=== PATIENT | male | born 1950 | race Caucasian/White ===

== ENCOUNTER → 2018-09-08 | Outpatient (CLI) | payer MEDICARE ==
--- NOTE | 2018-09-08 12:21 | ECHOS ---
STRESS ECHOCARDIOGRAM DATE OF SERVICE: 09/08/2018 INDICATIONS: Shortness of breath. MEDICATIONS: BASELINE HEART RATE: 64 BASELINE BLOOD PRESSURE: 134/79 MAXIMUM HEART RATE: 142 MAXIMUM BLOOD PRESSURE: 220/93 85% MPHR: 100% MPHR: METS: 12.9 MAXIMUM STAGE REACHED: V TOTAL EXERCISE TIME: 12 minutes 30 seconds CLINICAL INFORMATION: Baseline EKG revealed normal sinus rhythm without significant ST-T changes. Patient walked on standard Owen protocol for 12 minute 30 seconds achieved a maximal heart rate of 142 beats per minute which is well above 85% of predicted maximal. Rare isolated PVCs were noted. Towards the peak exercise, patient had upsloping nonspecific ST-segment changes noted unassociated with any angina or arrhythmia. In the recovery period, there was evidence of upsloping inferolateral ST-segment changes and these changes may be considered ischemic, but patient did not have any subjective symptoms of angina. By EKG criteria, this is a positive stress test with ST-segment depression in lateral leads without any subjective symptoms of angina and there was no arrhythmia. This is probably a false-positive finding. Baseline echo images revealed normal wall motion and wall thickening of all segments. At peak exercise, there was good augmentation of left ventricular wall motion and wall thickening of all segments suggesting that there is no evidence of stress-induced ischemia on this study. FINAL IMPRESSION: 1. Excellent exercise capacity with probably a false positive stress test by EKG criteria without subjective symptoms of angina. 2. Normal stress echocardiogram. REYES / JOSE LUISN: [id number] /
--- NOTE | 2018-09-09 06:35 | ECHOF ---
Referral Reason:CHEST PAIN MEASUREMENTS -------- HEIGHT: 172.7 cm WEIGHT: 68.9 kg BP: RVIDd: 3.3 cm (< 3.3) IVSd: 1.0 cm (0.6 - 1.1) LVIDd: 4.2 cm (3.9 - 5.3) LVPWd: 1.0 cm (0.6 - 1.1) IVSs: 1.2 cm LVIDs: 2.7 cm LVPWs: 1.2 cm LAESV Index (A-L): 28.60 ml/m Ao Diam: 3.3 cm (2.0 - 3.7) AV Cusp: 1.5 cm (1.5 - 2.6) LA Diam: 2.6 cm (2.7 - 3.8) MV EXCURSION: 18.829 mm (> 18.000) MV EF SLOPE: 128 mm/s (70 - 150) EPSS: 0.2 cm MV E Crow: 0.88 m/s MV DecT: 211 ms MV A Crow: 1.00 m/s MV E/A Ratio: 0.88 AV maxP.64 mmHg AV meanP.23 mmHg FINDINGS -------- Sinus rhythm. Resting bradycardia (HR<60bpm). This was a technically good study. The left ventricular size is normal. Left ventricular wall thickness is normal. Overall left vent ricular systolic function is normal with, an EF between 55 - 60 %. The right ventricle is normal in size and function. Normal LA size by volume 22+/-6 ml/m2. The right atrium is normal in size. Aortic valve is trileaflet and is mildly thickened. There is mild aortic regurgitation. There is no evidence of aortic stenosis. The mitral valve leaflets are mildly thickened. Mild mitral regurgitation is present. Mild tricuspid regurgitation present. Right ventricular systolic pressure is normal at < 35 mmHg. The right ventricular systolic pressure, as measured by Doppler, is {RVSP}. There is no pulmonic regurgitation present. The aortic root size is normal. Normal inferior vena cava with normal inspiratory collapse consistent with estimated right atrial pre ssure of 5 mmHg. There is no pericardial effusion. CONCLUSIONS -------- 1. Sinus rhythm. 2. Resting bradycardia (HR<60bpm). 3. This was a technically good study. 4. The left ventricular size is normal. 5. Left ventricular wall thickness is normal. 6. Overall left ventricular systolic function is normal with, an EF between 55 - 60 %. 7. Normal LA size by volume 22+/-6 ml/m2. 8. Aortic valve is trileaflet and is mildly thickened. 9. There is mild aortic regurgitation. 10. There is no evidence of aortic stenosis. 11. The mitral valve leaflets are mildly thickened. 12. Mild mitral regurgitation is present. 13. Mild tricuspid regurgitation present. 14. Right ventricular systolic pressure is normal at < 35 mmHg. 15. There is no pulmonic regurgitation present. 16. The aortic root size is normal. 17. There is no pericardial effusion. GUIDE CRUISE: Rebel Ruelas RDCS
== END ==
LOC: RADNMMAIN 09:08
PROVIDERS: ATTEND Internal Medicine
DX: R07.9 Chest pain, unspecified (principal); R06.09 Other forms of dyspnea
CPT/HCPCS: 93306; 93351

== ENCOUNTER → 2020-12-19 | Outpatient (CLI) | payer MEDICARE ==
[2020-12-19 14:30] LABS: T4, Free (Free Thyroxine) 1.01 ng/dL (0.78-2.19)
[2020-12-20 02:14] LABS: Thyroid Peroxidase Antibodies 38.3 U/mL (0.0-60.0)
== END | disposition home or self-care (01) ==
LOC: LABWHC1 13:12
PROVIDERS: ATTEND Allergy & Immunology
DX: L50.8 Other urticaria (principal)
CPT/HCPCS: 36415; 84439; 84443; 86003; 86376; 86800

== ENCOUNTER → 2021-07-08 | Outpatient (CLI) | payer MEDICARE ==
--- NOTE | 2021-07-08 12:56 | XR ---
EXAMINATION TYPE: XR chest 2V DATE OF EXAM: 07/08/2021 COMPARISON: None INDICATION: Cough TECHNIQUE: Frontal and lateral views of the chest are obtained. FINDINGS: The heart size is normal. The pulmonary vasculature is normal. The lungs are clear. IMPRESSION: 1. No acute pulmonary process.
== END | disposition home or self-care (01) ==
LOC: RADXRMAIN 12:05
PROVIDERS: ATTEND Internal Medicine
DX: R05.9 Cough, unspecified (principal)
CPT/HCPCS: 71046

== ENCOUNTER → 2023-05-01 | Outpatient (CLI) | payer MEDICARE ==
--- NOTE | 2023-05-07 09:13 | MR ---
EXAMINATION TYPE: MR knee RT wo con DATE OF EXAM: 05/01/2023 COMPARISON: Radiograph 04/23/2023 HISTORY: 73-year-old male M2 5.561, Right inner knee pain, swelling and locking TECHNIQUE: Multiplanar, multisequence imaging of the right knee is performed without IV contrast. FINDINGS: There is a partial tear at the deep femoral attachment of the ACL, sagittal image 21 and axial image 23. PCL is intact. Edema on either side of the intact MCL. There is heterogeneous thickening at the femoral attachment of the LCL proper and intermediate signal of the popliteus tendon. Corresponding mild edema of the popliteus muscle belly. There is a large oblique tear of the medial meniscus extending from the junction of the posterior hor n and body and throughout the meniscal body. Mild to moderate irregular cartilage loss along the mid central aspect of the medial femoral condyle measuring approximately 9 x 5 mm. There is an oblique tear of the lateral meniscus extending from the junction with the posterior horn extending throughout the meniscal body and with a contiguous horizontal cleavage tear extending withi n the anterior horn. Overall lateral compartment articular cartilage volume is maintained. Patellofemoral compartment shows mild superficial cartilage fissuring along the backside of the nixon la. Extensor mechanism is intact. Anterior subcutaneous soft tissue swelling is noted. Large knee joint effusion with mild synovial thickening throughout. Deep soft tissue edema noted. Flu id extending in the expected region of the Navarro's cyst. Normal popliteal artery anatomy and muscle bulk. No suspicious bone marrow replacement. IMPRESSION: 1. Partial thickness tear at the deep femoral attachment of the ACL. 2. Grade 1 MCL sprain. 3. Grade 1 versus grade 2 sprain femoral attachment of the LCL proper. Popliteus tendinosis and mild popliteus muscle strain. 4. Large oblique tear involving the junction of the posterior horn and body of the medial meniscus an d extending throughout the meniscal body. Focal mild osteoarthritic change along the mid central aspe ct of the medial compartment. 5. Large oblique tear lateral meniscus extending from the junction of the posterior horn and body wit h contiguous horizontal cleavage tear extending through the anterior horn. 6. Large knee joint effusion with mild chronic synovitis. Extensive deep soft tissue edema suggests e xtravasation of joint fluid. Additionally, there is possible rupture of a previous Navarro's cyst. 7. Mild degenerative cartilage changes along the back side of the patella.
== END | disposition home or self-care (01) ==
LOC: RADMRIMAIN 15:31
PROVIDERS: ATTEND Orthopaedic Surgery
DX: S83.241A Other tear of medial meniscus, current injury, right knee, initial encounter (principal); S83.281A Other tear of lateral meniscus, current injury, right knee, initial encounter; S83.511A Sprain of anterior cruciate ligament of right knee, initial encounter; S83.411A Sprain of medial collateral ligament of right knee, initial encounter; M17.11 Unilateral primary osteoarthritis, right knee; S86.811A Strain of other muscle(s) and tendon(s) at lower leg level, right leg, initial encounter; M25.461 Effusion, right knee; M65.861 Other synovitis and tenosynovitis, right lower leg; X58.XXXA Exposure to other specified factors, initial encounter

== ENCOUNTER 2023-05-26 06:11 | Day surgery (SDC) | payer MEDICARE ==
[2023-05-12 11:29] VITALS: BMI 23.6
--- NOTE | 2023-05-25 08:39 | P.HPOR ---
History of Present Illness H&P Date: 05/25/23 Chief Complaint: Right knee pain The patient is a 73-year-old male who presents with persistent/progressive right knee pain after an injury in March of this year or working out. He notes medial and lateral pain that increases with activity and twisting. He notes intermittent catching and giving way. He tried medications in addition his previously had an injection without substantial relief. He notes daily pain that limits him. Review of Systems Negative except as in HPI Past Medical History Past Medical History: Asthma, Hypertension, Osteoarthritis (OA) Additional Past Medical History / Comment(s): rt knee injury while excercise,exercised induced asthma when swimming,at age 2-osteomyelitis and pneumonia History of Any Multi-Drug Resistant Organisms: None Reported Past Surgical History: Orthopedic Surgery Additional Past Surgical History / Comment(s): left knee arthroscopy 2004 Past Anesthesia/Blood Transfusion Reactions: No Reported Reaction Additional Past Anesthesia/Blood Transfusion Reaction / Comment(s): no known hx of blood transfusion Smoking Status: Former smoker - Past Family History Father Family Medical History: No Reported History Additional Family Medical History / Comment(s): lived into 90s Mother Additional Family Medical History / Comment(s): at age 96 Medications and Allergies Home Medications Medication Instructions Recorded Confirmed Type Albuterol Inhaler [Ventolin Hfa 1 - 2 puff INHALATION Q6H PRN 05/12/23 05/12/23 History Inhaler] Cetirizine HCl [Zyrtec] 10 mg PO BID PRN 05/12/23 05/12/23 History amLODIPine 10 mg PO QAM 05/12/23 05/12/23 History Allergies Allergy/AdvReac Type Severity Reaction Status Date / Time latex Allergy Rash/Hives Verified 05/12/23 11:03 mold Allergy Rash/Hives Verified 05/12/23 10:52 Physical Examination - Knee right Appearance: effusion Effusion grade: grade 3 Tenderness with palpation: medial ROM: extension: -10 degrees ROM: flexion: 100 degrees Crepitus with motion: Yes Strength: extension: 5/5 Strength: flexion: 5/5 Meniscal tests: medial meniscal tests: positive, medial joint line pain: positive Results The patient is a well-developed white male approximately 5 foot 8, 150 pounds of mesomorphic habitus. HEENT exam is nonfocal, neck is supple. He has painless passive motion of the right hip. Straight leg raise is negative. On the right knee, he is tender over the medial joint line. Collaterals are stable, Tom was negative, Saray's elicits medial pain. His distal neurovascular appears intact in the right lower extremity. - Diagnostic results Knee MRI: image reviewed (MRI of the right knee shows evidence of a posterior medial meniscal tear along with chondral defect of the medial femoral condyle. There also appears to be a lateral meniscal tear.) Assessment and Plan Assessment: Right knee internal derangement/symptomatic medial meniscal tear Plan: I talked with the patient at length regarding his condition along with treatment options. At this point he continues to have significant pain and mechanical symptoms after this acute injury despite attempted conservative measures. After a thorough discussion he opted to proceed with surgery. We'll plan on proceeding with arthroscopic evaluation with probable partial medial/possible lateral meniscectomy. We will likely perform as an outpatient procedure. Risks and benefits were discussed at length in layman's terms.
[2023-05-26] MEDS ORDERED: DEXAMETHASONE SOD PHOSPHATE 4 MG/ML 1 ML VIAL IV ONE (06:24)
[2023-05-26] MEDS ORDERED: HYDROmorphone 0.5 MG/0.5 ML SYRINGE IVP PRN (06:24)
[2023-05-26] MEDS ORDERED: ONDANSETRON 4 MG/2 ML VIAL IVP ONE (06:24)
[2023-05-26] MEDS ORDERED: LACTATED RINGERS 1,000 ML IV SCH (06:24)
[2023-05-26] MEDS ORDERED: PROPOFOL 10 MG/ML 20 ML VIAL IV ONE (07:38)
[2023-05-26] MEDS ORDERED: LIDOCAINE 2% INJ 20 MG/ML (2 ML VIAL) ONE (07:38)
[2023-05-26] MEDS ORDERED: fentaNYL (PF) 50 MCG/ML 2 ML AMP ONE (07:38)
[2023-05-26] MEDS ORDERED: PHENYLEPHRINE-0.9% NACL SYG 1,000 MCG/10 ML SYRINGE ONE (07:38)
[2023-05-26] MEDS ORDERED: MIDAZOLAM 2 MG/2 ML VIAL ONE (07:38)
[2023-05-26] MEDS ORDERED: EPINEPHrine (PF) 1 ML in SODIUM CHLORIDE 0.9% IRRIGATIO 3,000 ML IRRIGATION ONE ×4 (07:44)
--- NOTE | 2023-05-26 08:35 | P.OP ---
Date of Procedure: 05/26/23 Preoperative Diagnosis: Right knee internal derangement Postoperative Diagnosis: Right knee posterior medial meniscal tear/posterior lateral meniscal tear/marked synovitis Procedure(s) Performed: Right knee arthroscopic partial medial meniscectomy/partial lateral meniscectomy/synovectomy of the medial, lateral, and patellofemoral compartments Anesthesia: SEAN Surgeon: Lb Machuca Estimated Blood Loss (ml): 10 Pathology: none sent Condition: stable Disposition: PACU Indications for Procedure: The patient is a 73-year-old male who presents with progressive right knee pain, swelling, and stiffness after a previous injury despite attempted conservative measures. A discussion of the risks and benefits of operative intervention versus continued conservative measures was made with patient. He opted to proceed with surgery. Operative risks to include infection, neurovascular injury, development of blood clots, possible incomplete resolution symptoms, possible worsening symptoms and need for subsequent procedures was discussed. Informed consent was obtained. Operative Findings: As below Description of Procedure: The patient was brought to the operating room, and after induction of general anesthesia examined the right knee. Collaterals were stable, Tom was negative, and posterior drawer was negative. The right lower extremity was prepped and draped in a normal fashion. A superior lateral portal was made through a 3 mm skin incision superior and lateral to the patella. This was used for outflow. A lateral portal was made through a 5 mm vertical skin incision lateral to the patella tendon above the joint line. Diagnostic arthroscopy was performed. On inspection of the medial compartment, a complex tear involving the posterior medial meniscus was noted in the white-red junction. This was debrided back to stable base with straight baskets and a motorized shaver. Grade 2-3 chondral changes were noted involving the distal lateral portion the medial femoral condyle. Marked synovitis involving the anteromedial compartment was debrided with a motorized shaver. On inspection of the notch, the anterior cruciate ligament appeared to be intact. On inspection of the lateral compartment, a complex tear involving the middle to posterior one third of the lateral meniscus in the white-red junction was noted. This was debrided back to stable base with straight baskets and a motorized shaver. Again marked synovitis involving the anterior lateral compartment was debrided with a motorized shaver.. On inspection of the patellofemoral articulation, there is chondral fibrillation and chondromalacia however no loose chondral fragments. The marked synovitis was debrided with a motorized shaver.. The gutters were clear debris. The knee was then thoroughly irrigated. The portals were closed with Steri-Strips. A sterile dressing was applied in addition to a compression stocking. The patient was awoken from general anesthesia and transferred to recovery room in good condition. Blood loss was estimated at 10 mL. No complications were incurred.
[2023-05-26 08:52] VITALS: RESP 16; TEMP 97
[2023-05-26] MEDS ORDERED: HYDROcodone/APAP 5-325MG 1 EACH TAB ONE (09:56)
[2023-05-26 10:53] VITALS: BP 120/60; PULSE 75
== END 2023-05-26 11:20 | disposition home or self-care (01) ==
LOC: OR 06:11
PROVIDERS: ATTEND Orthopaedic Surgery
DX: S83.241A Other tear of medial meniscus, current injury, right knee, initial encounter (principal); S83.281A Other tear of lateral meniscus, current injury, right knee, initial encounter; M65.161 Other infective (teno)synovitis, right knee; M17.11 Unilateral primary osteoarthritis, right knee; J45.909 Unspecified asthma, uncomplicated; I10 Essential (primary) hypertension; Z87.891 Personal history of nicotine dependence; Z91.040 Latex allergy status; Z91.048 Other nonmedicinal substance allergy status
CPT/HCPCS: 29880; J2250; J1100; J2405; J0690; J0171; J3010; J2704; J1170; J2001; J2371

== ENCOUNTER → 2023-06-19 | Outpatient (CLI) | payer MEDICARE ==
--- NOTE | 2023-06-19 16:59 | CA ---
Transthoracic Echo Report Name: Mehdi Gentile Age: 73 Gender: M : 1950 Exam Date: 06/19/2023 14:23 Exam Location: [facility] Ht (in): 67 Wt (lb): 154 Ordering Physician: Ivan Siddiqi DO Attending/Referring Phys: Shipping And Receiving Specialist Bertha Myers [facility] Procedure CPT: Indications: I10 HTN R01.1 CARDIAC MURMUR Cardiac Hx: Technical Quality: Fair Contrast 1: Total Dose (mL): Contrast 2: Total Dose (mL): MEASUREMENTS (Male / Female) Normal Values 2D ECHO LV Diastolic Diameter PLAX 3.9 cm 4.2 - 5.9 / 3.9 - 5.3 cm LV Systolic Diameter PLAX 2.9 cm IVS Diastolic Thickness 1.2 cm 0.6 - 1.0 / 0.6 - 0.9 cm LVPW Diastolic Thickness 1.0 cm 0.6 - 1.0 / 0.6 - 0.9 cm LV Relative Wall Thickness 0.6 LVOT Diameter 2.0 cm Ascending Aorta Diameter 3.4 cm M-MODE Aortic Root Diameter MM 2.7 cm LA Systolic Diameter MM 3.8 cm LA Ao Ratio MM 1.4 AV Cusp Separation MM 1.7 cm DOPPLER AV Peak Velocity 251.4 cm/s AV Peak Gradient 25.3 mmHg AV Mean Velocity 173.1 cm/s AV Mean Gradient 13.3 mmHg AV Velocity Time Integral 51.1 cm LVOT Peak Velocity 141.5 cm/s LVOT Peak Gradient 8.0 mmHg LVOT Velocity Time Integral 28.2 cm LVOT Stroke Volume 88.0 cm??? LVOT Stroke Volume Index 48.6 ml/m??? LVOT Cardiac Index 3087.5 cm???/min???m??? AV Area Cont Eq vti 1.7 cm??? AV Area Cont Eq pk 1.8 cm??? Mitral E Point Velocity 69.1 cm/s Mitral A Point Velocity 88.5 cm/s Mitral E to A Ratio 0.8 MV Deceleration Time 202.3 ms LV E' Lateral Velocity 11.9 cm/s Mitral E to LV E' Lateral Ratio 5.8 LV E' Septal Velocity 7.9 cm/s Mitral E to LV E' Septal Ratio 8.8 TR Peak Velocity 188.5 cm/s TR Peak Gradient 14.2 mmHg Right Atrial Pressure 3.0 mmHg Pulmonary Artery Systolic Pressu 17.2 mmHg Right Ventricular Systolic Press 17.2 mmHg FINDINGS Left Ventricle Mildly increased septal wall thickness. Left ventricular cavity size normal. Normal left ventricular systolic function with no obvious regional wall motion abnormalities. Left ventricular ejection fraction is estimated at 55-60%. Right Ventricle Mild right ventricular dilatation. Right Atrium Normal right atrial size. Left Atrium Normal left atrial size. Mitral Valve Mitral valve thickened. Mild mitral regurgitation. Aortic Valve No vegetations seen (suggest transesophageal echo if suspicion high. Diffuse thickening of the aortic valve cusps with reduced excursion. Mild aortic stenosis with a peak gradient of 25.28 mmHg and a mean gradient of 13.27 mmHg. Tricuspid Valve Structurally normal tricuspid valve. Trace tricuspid regurgitation. Pulmonic Valve Structurally normal pulmonic valve. [id number] pulmonic regurgitation. Pericardium No pericardial effusion. Aorta Normal size aortic root and proximal ascending aorta. CONCLUSIONS Left ventricular ejection fraction is estimated at 55-60%. No obvious regional wall motion abnormalities. Mildly increased septal wall thickness. Calcific thickening of aortic valve with mild aortic stenosis Moderate pulmonic regurgitation No obvious evidence of endocarditis. If high clinical suspicion, would recommend [place] No pericardial effusion Previewed by: Dr Raj Burrell (Electronically Signed) Final Date: 19 June 2023 16:58
== END | disposition home or self-care (01) ==
LOC: RADECHMAIN 14:13
PROVIDERS: ATTEND Family Medicine
DX: I35.0 Nonrheumatic aortic (valve) stenosis (principal); I37.1 Nonrheumatic pulmonary valve insufficiency; I10 Essential (primary) hypertension; R01.1 Cardiac murmur, unspecified
CPT/HCPCS: 93306

== ENCOUNTER 2023-12-16 11:41 | Day surgery (SDC) | payer MEDICARE ==
[2023-12-15 10:28] VITALS: BMI 24.5
[~2023-12-16 11:41] MED LIST: ALPRAZolam 0.25 MG TAB PO PRN; ALPRAZolam 0.5 MG TAB PO PRN; NITROGLYCERIN SL TABS 0.4 MG TAB SUBLINGUAL PRN; SODIUM CHLORIDE 0.9% 1,000 ML in EMPTY BAG 1 BAG IV SCH
[2023-12-16] MEDS: SODIUM CHLORIDE 0.9% 1,000 ML IV ONE (12:06)
[2023-12-16 12:27] VITALS: RESP 16; TEMP 97.8
[2023-12-16 12:33] LABS: Basophils # (A) 0.1 k/uL (0-0.2); Basophils % (A) 1 %; Eosinophils # (A) 0.2 k/uL (0-0.7); Eosinophils % (A) 3 %; HCT 52.3 % (39.0-53.0); HGB 16.4 gm/dL (13.0-17.5); Lymphocytes # (A) 1.1 k/uL (1.0-4.8); Lymphocytes % (A) 16 %; MCHC 31.3 g/dL (31.0-37.0); MCV 89.4 fL (80.0-100.0); Mean Platelet Volume 8.7; Monocytes # (A) 0.6 k/uL (0-1.0); Monocytes % (A) 9 %; Neutrophils # (A) 4.9 k/uL (1.3-7.7); Neutrophils % (A) 70 %; Platelet Count 220 k/uL (150-450); RBC 5.85 m/uL (4.30-5.90)
[2023-12-16 12:47] LABS: African American GFR (CKD) >90 (>60 ml/min/1.73 sqM); Anion Gap 9 mmol/L; Blood Urea Nitrogen 12 mg/dL (9-20); Calcium 9.1 mg/dL (8.4-10.2); Carbon Dioxide 28 mmol/L (22-30); Chloride 99 mmol/L (98-107); Glucose 98 mg/dL (74-99); Non-African American GFR(CKD) >90 (>60 ml/min/1.73 sqM); Potassium 3.9 mmol/L (3.5-5.1); Sodium 136 mmol/L (137-145)
[2023-12-16] MEDS ORDERED: VERAPAMIL 2.5 MG/ML 2 ML AMP ONE (14:58)
[2023-12-16] MEDS ORDERED: HEPARIN SODIUM 1,000 UN/ML (10ML VL) ONE (14:58)
[2023-12-16] MEDS ORDERED: fentaNYL (PF) 50 MCG/ML 2 ML AMP ONE (14:58)
[2023-12-16] MEDS ORDERED: LIDOCAINE 1% INJ 10MG/ML (20 ML MDV) ONE (14:58)
[2023-12-16] MEDS: LIDOCAINE 1% INJ 10MG/ML (20 ML MDV) SQ ONE (15:12)
[2023-12-16] MEDS: VERAPAMIL SYRINGE (5 MG/10 ML) INTRAARTER ONE (15:13)
[2023-12-16] MEDS: fentaNYL (PF) 50 MCG/ML 2 ML AMP IVP ONE (15:14)
[2023-12-16] MEDS: MIDAZOLAM 2 MG/2 ML VIAL IVP ONE (15:14)
[2023-12-16] MEDS: HEPARIN SODIUM 1,000 UN/ML (10ML VL) IVP ONE (15:17)
[2023-12-16] MEDS: IOPAMIDOL-370 100ML BTL INJ ONE (15:25)
[2023-12-16 18:14] VITALS: BP 155/89; PULSE 64
[2023-12-16] MEDS: ASPIRIN 325 MG TAB PO ONE (18:40)
--- NOTE | 2023-12-17 02:46 | P.CARDCATH ---
Description of Procedure: PROCEDURES PERFORMED: Left heart catheterization, bilateral coronary angiography, ultrasound guided arterial access INDICATION: [place], coronary artery calcification CONSENT:I have discussed the risks, benefits and alternative therapies for the above-mentioned procedure and for both sedation/analgesia as well as necessary blood product administration, if indicated, as they pertain to this patient. The patient has indicated understanding and acceptance of the risks and procedures discussed. PROCEDURE: After the risks, benefits and alternatives of the above mentioned procedure explained in detail with the patient, informed consent was obtained. Patient was taken to the catheterization lab and prepped and draped in usual fashion. Ultrasound guidance was used to assess for arterial access. 1% lidocaine was used to anesthetize the right radial artery. A 6-Tajik sheath was placed in the right radial artery using modified Seldinger technique and ultrasound guidance. Left coronary angiography was performed with a 5-Tajik JL 3.5 catheter and right coronary angiography was performed with a 5-Tajik AR2 catheter in various views. A 5-Tajik FR5 catheter was inserted into the left ventricle and pressure measurements were obtained. The right radial sheath was removed and a TR band was placed with hemostasis achieved. The patient tolerated the procedure well. Patient was transported back to the post catheterization holding area in stable condition. Conscious Sedation: Patient was monitored under the direct supervision of myself for conscious sedation using Versed and fentanyl for a total duration of 13 minutes HEMODYNAMICS: Ao: 151/81 LV: 168/8, LVEDP 18, mean gradient 21mmHg across the aortic valve SELECTIVE CORONARY ARTERIOGRAPHY: LEFT MAIN: The left main is a large caliber vessel which bifurcates into the LAD and circumflex. There is 10% left main stenosis. LEFT ANTERIOR DESCENDING CORONARY ARTERY: LAD is a large caliber vessel which wraps around to the apex. There is proximal LAD 30% stenosis and mild luminal irregularities of the mid to distal LAD. Diagonal 1 is an approximately 2.0mm vessel and has ostial 40% stenosis and a 95% stenosis of the mid diagonal 1 branch. There are left to right collaterals. LEFT CIRCUMFLEX CORONARY ARTERY: Left circumflex is a moderate caliber vessel wi th a 40% stenosis at the level of a moderate caliber OM1 branch. Otherwise there are mild luminal irregularities RIGHT CORONARY ARTERY: The right coronary artery is a large caliber vessel which gives off a PDA and PLV branch and is the dominant vessel. There is 100% proximal RCA stenosis with heavy calcification. FINAL IMPRESSION: 1. CAD as described above including 100% FLY WINDER of RCA with left to right collaterals, 40% circumflex stenosis and 95% stenosis of small caliber diagonal 1 branch 2. Mildly elevated left sided filling pressures 3. Mild aortic stenosis PLAN: 1. Aggressive risk factor modification per most recent ACC/AHA guidelines. 2. Increase antianginal medications and add Imdur. If patient still having dyspnea, consider PCI of diagonal branch however is smaller caliber. May consider FLY WINDER PCI of RCA however diffuse heavy aorto ostial calcification.
== END 2023-12-16 21:09 | disposition home or self-care (01) ==
LOC: CATHCVL 11:41 → 6NMEDSUR 15:25 → CATHCVL 21:09
PROVIDERS: ATTEND Internal Medicine
DX: I25.10 Atherosclerotic heart disease of native coronary artery without angina pectoris (principal); I35.0 Nonrheumatic aortic (valve) stenosis; I10 Essential (primary) hypertension; Z79.899 Other long term (current) drug therapy
CPT/HCPCS: 93458; 76937; 80048; 85025; C1769; C1894; J2250; J2001; J3010; J1644; Q9967